=== PATIENT | female | born 1995 | race Caucasian/White ===

== ENCOUNTER 2017-01-14 12:48 | Emergency (ER) | payer BC, OTHER ==
[~2017-01-14] VITALS: Ht 165.1 cm; Wt 65.6 kg
[~2017-01-14 12:48] MED LIST: BCPILLS PO; CIPR-255 PO
[2017-01-14 12:52] VITALS: TEMP 37; Ht 165.1 cm; Wt 65.6 kg
[2017-01-14] MEDS ORDERED: SODIUM CHLORIDE 0.9% 1000ML 1,000 ML IV STA (12:57)
[2017-01-14 13:30] LABS: BASO % 0.3 %; BASO ABS # 0.03 K/uL (0-0.2); COMPLETE YES; EOS % 0.8 %; HEMATOCRIT 40.4 % (37-47); IG% 0.1 %; LYMPH % 32.6 %; MEAN CORPUSCULAR HEMOGLOBIN 29.6 pg (25-34); MEAN CORPUSCULAR HGB CONC 32.9 g/dl (32-36); MEAN PLATELET VOLUME 8.6 fL (7.4-10.4); MONO % 8.9 %; NEUT % 57.3 %; PLATELET COUNT 302 K/uL (130-400); RED BLOOD COUNT 4.49 M/uL (4.2-5.4); WHITE BLOOD COUNT 9.82 K/uL (4.8-10.8)
--- NOTE | 2017-01-14 13:36 | EMERGENCY ROOM VISIT NOTE ---
History Report prepared by Caty: Amanda Lyon Under the Supervision of: Dr. Tammie Jaquez M.D. First contact with patient: 12:55 Chief Complaint: ED VAG BLEEDING Stated Complaint: ABD PAIN, NAUSEA, POSS MISCARRIAGE Nursing Triage Summary: Pt reports lower abd pain since 0, vaginal bleeding now passing clots, began yesterday as spotting. Found out 1.5 wks ago she is . Nausea. History of Present Illness The patient is a 21 year old female who presents to the Emergency Room with complaints of worsening vaginal bleeding beginning yesterday afternoon at 4pm. She states that she is 1.5 week . The patient did speak with her doctor and was told a small amount of vaginal bleeding is normal but if it worsens to come to the ED. This is her first . The patient is experiencing cramping, dizziness, nausea, and chills. The patient was taking control when she became . She has stopped her control since having a positive test. The patient states her period was suppose to be December 17. She did take Tylenol this morning for the cramping. She has not seen OBGYN yet. Source of History: patient Onset: yesteday afternoon at 4pm Position: other (vagina) Quality: other (vaginal bleeding) Timing: worsening Associated Symptoms: + chills, + nausea Note: The patient is experiencing cramping and dizziness. Review of Systems See HPI for pertinent positives & negatives. A total of 10 systems reviewed and were otherwise negative. Past Medical & Surgical Medical Problems: (1) Cervical lymph node resection (2) No significant past medical history Family History FH: cancer FH: diabetes mellitus FH: seizures Social History Smoking Status: Never Smoker Alcohol Use: none Marital Status: single Housing Status: lives alone Occupation Status: employed, student Current/Historical Medications No Active Prescriptions or Reported Meds Allergies Coded Allergies: No Known Allergies (Unverified , 01/14/17) Physical Exam Vital Signs Date Time Temp Pulse Resp B/P (MAP) Pulse Ox O2 Delivery O2 Flow Rate FiO2 01/14/17 15:21 76 18 123/65 98 01/14/17 12:52 37.0 108 20 125/80 98 Room Air Physical Exam Vital signs reviewed. General: Well-appearing female, in no significant distress. HEENT: No scleral icterus, PERRLA, neck supple. Atraumatic. Cardiovascular: Regular rate and rhythm, no extra sounds. Pulmonary: Clear to auscultation bilaterally, normal work of breathing. Abdomen: Soft, nontender, nondistended, positive bowel sounds. Pelvic: Cervix is closed. Moderate amount of dark red blood. Mild tenderness on exam. Musculoskeletal: Atraumatic, no peripheral edema. Neurologic: Patient awake alert and oriented x 3 Skin: Warm, dry, no rash Medical Decision & Procedures ER Provider Diagnostic Interpretation: US results as stated below per my review and radiologist interpretation: ECTOPIC CLINICAL HISTORY: VB, 1st trimester TECHNIQUE: Transabdominal and transvaginal ultrasound COMPARISON STUDY: None FINDINGS: Uterus is midline. Intrauterine gestational sac is not identified. Endometrial thickness is 11 mm. Right ovary measures 3.5 cm at maximum with normal vascular flow. Left ovary measures 3.6 cm with normal vascular flow. There is a 2.5 cm left ovarian cyst No evidence for free fluid. IMPRESSION: 1. No evidence for an intrauterine gestational sac. 2. 2.5 cm left ovarian cyst. 3. Mild endometrial thickening at 11 mm. The above report was generated using voice recognition software. It may contain grammatical, syntax or spelling errors. Electronically signed by: Fede Jones M.D. 01/14/2017 2:07 PM Dictated Date/Time: 01/14/2017 2:05 PM Laboratory Results 01/14/17 13:05 Red Blood Count 4.49, Mean Corpuscular Volume 90.0, Mean Corpuscular Hemoglobin 29.6, Mean Corpuscular Hemoglobin Concent 32.9, Mean Platelet Volume 8.6, Neutrophils (%) (Auto) 57.3, Lymphocytes (%) (Auto) 32.6, Monocytes (%) (Auto) 8.9, Eosinophils (%) (Auto) 0.8, Basophils (%) (Auto) 0.3, Neutrophils # (Auto) 5.63, Lymphocytes # (Auto) 3.20, Monocytes # (Auto) 0.87, Eosinophils # (Auto) 0.08, Basophils # (Auto) 0.03 01/14/17 13:05 Test 01/14/17 13:05 White Blood Count 9.82 K/uL (4.8-10.8) Red Blood Count 4.49 M/uL (4.2-5.4) Hemoglobin 13.3 g/dL (12.0-16.0) Hematocrit 40.4 % (37-47) Mean Corpuscular Volume 90.0 fL (80-100) Mean Corpuscular Hemoglobin 29.6 pg (25-34) Mean Corpuscular Hemoglobin Concent 32.9 g/dl (32-36) Platelet Count 302 K/uL (130-400) Mean Platelet Volume 8.6 fL (7.4-10.4) Neutrophils (%) (Auto) 57.3 % Lymphocytes (%) (Auto) 32.6 % Monocytes (%) (Auto) 8.9 % Eosinophils (%) (Auto) 0.8 % Basophils (%) (Auto) 0.3 % Neutrophils # (Auto) 5.63 K/uL (1.4-6.5) Lymphocytes # (Auto) 3.20 K/uL (1.2-3.4) Monocytes # (Auto) 0.87 K/uL (0.11-0.59) Eosinophils # (Auto) 0.08 K/uL (0-0.5) Basophils # (Auto) 0.03 K/uL (0-0.2) RDW Standard Deviation 45.2 fL (36.4-46.3) RDW Coefficient of Variation 13.8 % (11.5-14.5) Immature Granulocyte % (Auto) 0.1 % Immature Granulocyte # (Auto) 0.01 K/uL (0.00-0.02) Anion Gap 5.0 mmol/L (3-11) Est Creatinine Clear Calc Drug Dose 100.9 ml/min Estimated GFR () 123.0 Estimated GFR (Non- 106.1 BUN/Creatinine Ratio 20.6 (10-20) Calcium Level 8.9 mg/dl (8.5-10.1) Total Bilirubin 0.2 mg/dl (0.2-1) Direct Bilirubin < 0.1 mg/dl (0-0.2) Aspartate Amino Transf (AST/SGOT) 18 U/L (15-37) Alanine Aminotransferase (ALT/SGPT) 28 U/L (12-78) Alkaline Phosphatase 83 U/L (45-117) Total Protein 7.2 gm/dl (6.4-8.2) Albumin 3.3 gm/dl (3.4-5.0) Progesterone Level 1.42 ng/mL Human Chorionic Gonadotropin, Quant 926 mIU/mL Laboratory results per my review. Medications Administered Medications (Trade) Dose Ordered Sig/Zora Route Start Time Stop Time Status Last Admin Dose Admin Sodium Chloride 1,000 ml @ 200 mls/hr Q5H STAT IV 01/14/17 12:57 01/14/17 15:51 DC 01/14/17 12:57 200 MLS/HR Acetaminophen (Tylenol Tab) 650 mg NOW STAT PO 01/14/17 15:01 01/14/17 15:02 DC 01/14/17 15:16 650 MG ED Course 1325: Past medical records reviewed. The patient was evaluated in room C11. A complete history and physical examination was performed. 1257: Sodium Chloride 1,000 ml @ 200 mls/hr IV. 1504: Upon reevaluation, the patient appeared to have improvement of her symptoms. I discussed findings with the patient. She verbalized agreement of the treatment plan. She was discharged home. Medical Decision The patient is a 21 year old female who presents to the ED with complaints of vaginal bleeding. Differentials include ectopic , dysfunction uterine bleeding, bleeding dyscrasia, trauma, infection, as well as others were entertained. Medication Reconciliation: I attest that I have personally reviewed the patient' s current medication list. Blood Pressure Screening: Patient was found to have normal blood pressure on screening and does not require follow-up. This patient was evaluated and appeared to be in no significant distress. IV access was obtained and laboratory work was drawn. Ultrasound of the pelvis was performed and does not reveal an IUP. Patient's blood type is O+. Beta hCG is just over 900. The patient was informed of the possibility of a first trimester miscarriage. She does not require oh gram this time. She was encouraged to drink plenty of fluids and use Tylenol as needed for pain. She will follow-up with her MILL MANAGER this week for repeat hCG testing. She will return to the ER for worsening of symptoms or any medical concerns. Impression Primary Impression: Threatened in first trimester Additional Impression: Vaginal bleeding in patient at less than 20 weeks gestation Scribe Attestation The scribe's documentation has been prepared under my direction and personally reviewed by me in its entirety. I confirm that the note above accurately reflects all work, treatment, procedures, and medical decision making performed by me. Departure Information Dispostion Home / Self-Care Prescriptions No Active Prescriptions or Reported Meds Referrals (PCP) Forms HOME CARE DOCUMENTATION FORM, IMPORTANT VISIT INFORMATION, WORK / SCHOOL INSTRUCTIONS Patient Instructions Miscarriage - [facility], My [facility] Additional Instructions Diagnosis: Vaginal bleeding first trimester Please drink plenty of clear fluids. Tylenol 650 mg every 6 hours as needed for pain. Follow-up with MILL MANAGER, please call to make an appointment within the next several days. Return to the emergency department for worsening of symptoms or any medical concerns. Problem Qualifiers
[2017-01-14 13:53] LABS: ALT/SGPT 28 U/L (12-78); BLOOD UREA NITROGEN 17 mg/dl (7-18); BUN/CREATININE RATIO 20.6 (10-20); CALCIUM 8.9 mg/dl (8.5-10.1); CARBON DIOXIDE 27 mmol/L (21-32); CHLORIDE 109 mmol/L (98-107); GLUCOSE 93 mg/dl (70-99); POTASSIUM 3.6 mmol/L (3.5-5.1); SODIUM 141 mmol/L (136-145)
[2017-01-14 13:56] LABS: ALKALINE PHOSPHATASE 83 U/L (45-117); AST/SGOT 18 U/L (15-37)
--- NOTE | 2017-01-14 14:08 | DIAGNOSTIC IMAGING REPORT ---
ECTOPIC CLINICAL HISTORY: VB, 1st trimester TECHNIQUE: Transabdominal and transvaginal ultrasound COMPARISON STUDY: None FINDINGS: Uterus is midline. Intrauterine gestational sac is not identified. Endometrial thickness is 11 mm. Right ovary measures 3.5 cm at maximum with normal vascular flow. Left ovary measures 3.6 cm with normal vascular flow. There is a 2.5 cm left ovarian cyst No evidence for free fluid. IMPRESSION: 1. No evidence for an intrauterine gestational sac. 2. 2.5 cm left ovarian cyst. 3. Mild endometrial thickening at 11 mm. The above report was generated using voice recognition software. It may contain grammatical, syntax or spelling errors. Electronically signed by: Fede Jones M.D. 01/14/2017 2:07 PM Dictated Date/Time: 01/14/2017 2:05 PM
[2017-01-14] MEDS ORDERED: ACETAMINOPHEN 325 MG TAB PO STA (15:01)
[2017-01-14 15:21] VITALS: BP 123/65; PULSE 76; O2SAT 98
== END 2017-01-14 15:22 | disposition home or self-care (01) ==
LOC: C.EDB 12:49 → C.EDC 15:22
DX: O20.0 Threatened abortion (principal); Z3A.01 Less than 8 weeks gestation of pregnancy; Z80.9 Family history of malignant neoplasm, unspecified; Z83.3 Family history of diabetes mellitus; Z82.0 Family history of epilepsy and other diseases of the nervous system

== ENCOUNTER 2017-01-16 07:51 | Emergency (ER) | payer BC, OTHER ==
[~2017-01-16] VITALS: Ht 165.1 cm; Wt 67.0 kg
[2017-01-16 07:58] VITALS: TEMP 37.1; Ht 165.1 cm; Wt 67.0 kg
[2017-01-16 08:50] LABS: ISTAT CREATININE 0.8 mg/dl; ISTAT HEMOGLOBIN 12.9 g/dl (12.0-16.0); ISTAT IONIZED CALCIUM 1.23 mmol/l
--- NOTE | 2017-01-16 09:05 | EMERGENCY ROOM VISIT NOTE ---
History Report prepared by Caty: Faustina Alex Under the Supervision of: Dr. Jose Craft D.O. First contact with patient: 08:13 Chief Complaint: ED VAG BLEEDING Stated Complaint: SEVERE BLEEDING AND CRAMPING History of Present Illness The patient is a 21 year old female who presents to the Emergency Room with complaints of persistent vaginal bleeding starting 2 days ago. The patient was seen in the ED 2 days ago with vaginal bleeding and abdominal pain. She has blood work which indicated a and an ultrasound which was inconclusive. She has a follow up appointment with Language Instructor today and was told to go the ED for an ultrasound. She continues to have abdominal pain and bleeding. The bleeding is heavier than a normal menstrual period, but environmental compliance officer than it was 2 days ago. Her last normal menstrual period was 2 months ago. She denies any other complaints. Source of History: patient Onset: 2 days ago Position: other (vaginal) Quality: other (bleeding) Timing: other (persistent) Associated Symptoms: + abdominal pain Review of Systems See HPI for pertinent positives & negatives. A total of 10 systems reviewed and were otherwise negative. Past Medical & Surgical Medical Problems: (1) Cervical lymph node resection (2) No significant past medical history Family History FH: cancer FH: diabetes mellitus FH: seizures Social History Smoking Status: Never Smoker Alcohol Use: none Marital Status: in relationship Housing Status: lives with significant other Occupation Status: employed Current/Historical Medications No Active Prescriptions or Reported Meds Allergies Coded Allergies: No Known Allergies (Unverified , 01/14/17) Physical Exam Vital Signs Date Time Temp Pulse Resp B/P (MAP) Pulse Ox O2 Delivery O2 Flow Rate FiO2 01/16/17 09:17 75 16 112/75 99 01/16/17 07:58 37.1 76 18 120/85 98 Room Air Physical Exam CONSTITUTIONAL/VITAL SIGNS: Reviewed / noted above. GENERAL: Non-toxic in appearance. INTEGUMENTARY: Warm, dry, and [place]. HEAD: Normocephalic. EYES: without scleral icterus or trauma. ENT/OROPHARYNX: clear and moist. LYMPHADENOPATHY/NECK: Is supple without lymphadenopathy or meningismus. RESPIRATORY: Lungs clear and equal. CARDIOVASCULAR: Regular rate and rhythm. GI/ABDOMEN: Soft and nontender. No organomegaly or pulsatile mass. No rebound or guarding. Normal bowel sounds. EXTREMITIES: Warm and well perfused. BACK: No CVA tenderness. NEUROLOGICAL: Intact without focal deficits. PSYCHIATRIC: normal affect. MUSCULOSKELETAL: Normally developed with good muscle tone. Medical Decision & Procedures Laboratory Results Test 01/16/17 08:30 01/16/17 08:36 Human Chorionic Gonadotropin, Quant 283 mIU/mL Bedside Hemoglobin 12.9 g/dl (12.0-16.0) Bedside Hematocrit 38 % (37-47) Bedside Sodium 141 mEq/L (135-144) Bedside Potassium 3.9 mEq/L (3.3-5.0) Bedside Chloride 103 mEq/L (101-112) Bedside Total CO2 28 mEq/l (24-31) Anion Gap 15.0 mmol/L (16-25) Bedside Blood Urea Nitrogen 15 mg/dl (7-18) Bedside Creatinine 0.8 mg/dl Bedside Glucose (other) 85 mg/dl (70-99) Bedside Ionized Calcium (Ana) 1.23 mmol/l Laboratory results as stated above per my review. ED Course 0815: Previous medical records were reviewed. The patient was evaluated in room A9B. A complete history and physical examination was performed. 0909: On reevaluation, the patient is resting comfortably. I discussed the results and findings with the patient. She verbalized agreement of the treatment plan. She was discharged home. Medical Decision Differential diagnosis: Etiologies such as ectopic , dysfunction uterine bleeding, bleeding dyscrasia, trauma, infection, as well as others were entertained. This is a 21-year-old female who presents to the ED with a chief complaint of continued vaginal bleeding. The patient was here 2 days ago and was felt to have a threatened miscarriage. The patient's quantitative hCG at that time was 926. She was supposed to have an outpatient quantitative hCG today and follow- up with the [facility] office at 9:30 this morning but accidentally came here. The patient reports that her vaginal bleeding is heavier than a period but is environmental compliance officer than what she had been experienced in 2 days ago. She continues having abdominal cramping. She denies any other complaints. Her physical exam was unremarkable. Her hemoglobin today is normal. Chemistry panel was unremarkable. Quantitative hCG was 283. The patient was discharged from the emergency department to her [facility] appointment for 9:30. Medication Reconcilliation Current Medication List: was personally reviewed by me Blood Pressure Screening Patient's blood pressure: Normal blood pressure Blood pressure disposition: Did not require urgent referral Impression Primary Impression: Miscarriage Scribe Attestation The scribe's documentation has been prepared under my direction and personally reviewed by me in its entirety. I confirm that the note above accurately reflects all work, treatment, procedures, and medical decision making performed by me. Departure Information Dispostion Home / Self-Care Prescriptions No Active Prescriptions or Reported Meds Referrals No Doctor, Assigned (PCP) Patient Instructions My [facility] Additional Instructions Go to your [facility] appointment now.
[2017-01-16 09:17] VITALS: BP 112/75; PULSE 75; O2SAT 99
== END 2017-01-16 09:19 | disposition home or self-care (01) ==
LOC: C.EDB 07:54 → C.EDA 09:19
DX: O03.9 Complete or unspecified spontaneous abortion without complication (principal); Z83.3 Family history of diabetes mellitus; Z82.0 Family history of epilepsy and other diseases of the nervous system

== ENCOUNTER → 2017-07-31 | Outpatient (CLI) | payer BC, OTHER | END | disposition home or self-care (01) | LOC: C.PAPS 16:12 | PROVIDERS: ATTEND Physician Assistant | DX: Z01.419 Encounter for gynecological examination (general) (routine) without abnormal findings (principal) ==

== ENCOUNTER → 2017-07-31 | Outpatient (CLI) | payer BC, OTHER | END | disposition home or self-care (01) | LOC: C.LABSPEC 16:06 | PROVIDERS: ATTEND Physician Assistant | DX: Z01.419 Encounter for gynecological examination (general) (routine) without abnormal findings (principal) ==